=== PATIENT | male | born 1995 | race Caucasian/White ===

== ENCOUNTER 2020-08-29 17:22 | Emergency (ER) | payer OTHER, SELFPAY ==
--- NOTE | ~2020-08-29 | US_ITS ---
EXAMINATION: US scrotum doppler DATE: 08/29/2020 18:32 INDICATION: Right-sided scrotal swelling and pain TECHNIQUE: Testicular sonogram utilizing grayscale and Doppler COMPARISON: CT dated 04/29/2019 FINDINGS: The right testis measures 4.1 x 3.0 x 2.7 cm. The left testis measures 4.7 x 2.9 x 2.1 cm. Symmetric normal grayscale appearance to both testes. There is normal vascular flow to both testes. The right e pididymis is normal with normal vascular flow. 4 mm anechoic cyst at the head of the left epididymis. The left epididymis is otherwise normal with normal vascular flow. There is no varicocele or hydroce le. Hyperechoic herniated fat seen along the cephalad margin of the right testis with corresponding l arge fat-containing right inguinal hernia evident on the prior CT study extending to the base of the nonvisualized scrotum. IMPRESSION: 1. Large fat-containing right inguinal hernia extending to the cephalad margin of the right testis. Otherwise normal scrotal ultrasound. Reviewed, dictated and finalized at location H. R ENERGY SYSTEMS ENGINEER
[2020-08-29 17:35] VITALS: BP 150/89; PULSE 95; RESP 16; TEMP 36.7; O2SAT 99
--- NOTE | 2020-08-29 18:35 | PC.NURSE ---
Pt unable to verify home medications. Pt unsure of names and dosages of his home medications.
[2020-08-29 18:44] LABS: Basophils Absolute Auto 0.1 K/mm3 (0.0-0.1); Basophils Percent Auto 0.8 % (0.2-1.2); Eosinophils Absolute Auto 0.6 K/mm3 (0-0.3); Eosinophils Percent Auto 6.3 % (0-4.4); Hematocrit 46.7 % (42.0-52.0); Hemoglobin 15.8 g/dL (14.0-18.0); Immature Granulocyte Absolute 0.09 K/mm3 (0.00-0.031); Immature Granulocyte Percent A 0.9 % (0-0.5); Lymphocytes Absolute Auto 3.56 K/mm3 (0.9-3.2); Lymphocytes Percent Auto 36.9 % (18.3-44.2); Mean Corpuscular HGB Conc 33.8 g/dl (32-36); Mean Corpuscular Hemoglobin 29.5 pg (26-34); Mean Corpuscular Volume 87.1 fl (80-100); Mean Platelet Volume 9.3 fl (7.4-10.4); Monocytes Absolute Auto 0.8 K/mm3 (0.1-0.6); Monocytes Percent Auto 8.4 % (2.6-8.5); Neutrophils Absolute Auto 4.5 K/mm3 (1.3-6.7); Neutrophils Percent Auto 46.7 % (45.5-73.1); Platelet Count Result 404 k/mm3 (150-375); Red Blood Count 5.36 M/mm3 (4.6-6.20); Red Cell Distribution Width 13.6 % (11.5-14.5); White Blood Count 9.6 K/mm3 (4.5-10.0)
--- NOTE | 2020-08-29 18:45 | ED.GENADULT ---
HPI - General Adult General Chief complaint: Urogenital-Male Stated complaint: R SCROTAL SWELLING Time Seen by Provider: 08/29/20 17:40 Source: patient Mode of arrival: ambulatory Limitations: no limitations History of Present Illness HPI narrative: Patient is a 25-year-old male who presents to emergency department for evaluation of right scrotal swelling for 4 months denies injury or trauma denies any similar occurrence outside of the 4 months duration denies any change in degree of symptoms was seen by primary care referred to emergency department for evaluation patient on arrival denies any pain or other complaints and is resting comfortably in the room in no distress Related Data Allergies Allergy/AdvReac Type Severity Reaction Status Date / Time No Known Allergies Allergy Unknown Verified 08/29/20 18:43 Review of Systems Review of Systems: All systems reviewed & are unremarkable except as noted in HPI and below PMFSH Social History Social History Smoking status: Current every day smoker Alcohol intake: current Gender identity (if verbalized by the patient): Male Exam Narrative: Exam Narrative: GENERAL: Well-appearing, well-nourished, and in no acute distress. HEAD: Normocephalic, atraumatic. EYES: PERRLA and EOMI. ENT: Nares clear, no rhinorrhea or epistaxis. Mucous membranes moist. CHEST: Clear to auscultation. No respiratory distress. No wheezes rales or rhonchi HEART: Regular rate and rhythm. No murmur heard. Normal peripheral pulses. ABDOMEN: Soft, nontender, nondistended,, tenderness of the right scrotum testicle is nontender findings consistent with hernia EXTREMITIES: Normal range of motion. No edema. SKIN: Warm, dry, no rash. NEURO: No focal deficits. Alert and oriented x3. Cranial nerves II through XII grossly intact PSYCH: Normal mood and affect. Course Course Emergency Course: Patient in the room in no distress aware of case findings treatment plan diagnosis agreeing to follow-up as directed Vital Signs Vital signs: Vital Signs Temperature 98.1 F 08/29/20 17:35 Pulse Rate 95 08/29/20 17:35 Respiratory Rate 16 08/29/20 17:35 Blood Pressure 150/89 H 08/29/20 17:35 Pulse Oximetry 99 08/29/20 17:35 Temperature 98.1 F 08/29/20 17:35 Pulse Rate 95 08/29/20 17:35 Respiratory Rate 16 08/29/20 17:35 Blood Pressure 150/89 H 08/29/20 17:35 Pulse Oximetry 99 08/29/20 17:35 Medical Decision Making MDM Narrative Medical decision making narrative: With hernia no incarceration will be discharged home provided with reasons to return given surgical follow-up Vital Signs Vital Signs: Vital Signs Temperature 98.1 F 08/29/20 17:35 Pulse Rate 95 08/29/20 17:35 Respiratory Rate 16 08/29/20 17:35 Blood Pressure 150/89 H 08/29/20 17:35 Pulse Oximetry 99 08/29/20 17:35 Temperature 98.1 F 08/29/20 17:35 Pulse Rate 95 08/29/20 17:35 Respiratory Rate 16 08/29/20 17:35 Blood Pressure 150/89 H 08/29/20 17:35 Pulse Oximetry 99 08/29/20 17:35 Lab Data Result diagrams: 08/29/20 18:38 08/29/20 18:38 Labs: Lab Results 08/29/20 08/29/20 Range/Units 18:38 18:38 WBC 9.6 (4.5-10.0) K/mm3 RBC 5.36 (4.6-6.20) M/mm3 Hgb 15.8 (14.0-18.0) g/dL Hct 46.7 (42.0-52.0) % MCV 87.1 (80-100) fl MCH 29.5 (26-34) pg MCHC 33.8 (32-36) g/dl RDW 13.6 (11.5-14.5) % Plt Count 404 H (150-375) k/mm3 MPV 9.3 (7.4-10.4) fl Immature Gran % (Auto) 0.9 H (0-0.5) % Neut % (Auto) 46.7 (45.5-73.1) % Lymph % (Auto) 36.9 (18.3-44.2) % [place] % (Auto) 8.4 (2.6-8.5) % Eos % (Auto) 6.3 H (0-4.4) % Baso % (Auto) 0.8 (0.2-1.2) % Lymph # (Auto) 3.56 H (0.9-3.2) K/mm3 [place] # (Auto) 0.8 H (0.1-0.6) K/mm3 Eos # (Auto) 0.6 H (0-0.3) K/mm3 Baso # (Auto) 0.1 (0.0-0.1) K/mm3 Abs Immat Gran (auto) 0.09 H (0.00-0.031
[2020-08-29 18:58] LABS: Anion Gap 7 mmol/L (8-16); Blood Urea Nitrogen 20 mg/dL (9-20); Calcium 9.8 mg/dL (8.4-10.2); Carbon Dioxide 31 mmol/L (22-30); Chloride 101 mmol/L (98-107); Estimated CRCL calculation 154 ml/min; Estimated Glomerular Filt Rate > 60; Glucose 90 mg/dL (75-110); Potassium 4.2 mmol/L (3.4-5.0); Sodium 139 mmol/L (137-145)
[2020-08-29 19:11] VITALS: BP 140/88; PULSE 88; RESP 20; O2SAT 99
== END 2020-08-29 19:14 | disposition home or self-care (01) ==
PROVIDERS: Emergency Medicine Emergency Medical Services; Emergency Provider Emergency Medicine; PCP Emergency Medicine
DX: K40.90 Unilateral inguinal hernia, without obstruction or gangrene, not specified as recurrent (principal); F17.200 Nicotine dependence, unspecified, uncomplicated
CPT/HCPCS: 36415; 76870; 80048; 85025; 93976; 99284

== ENCOUNTER 2020-09-14 14:47 | Outpatient (CLI) | payer OTHER, SELFPAY ==
--- NOTE | 2020-09-14 14:48 | ECG_ITS ---
Measurements Intervals [place] Rate: 82 P: 17 [place]: 133 QRS: 55 QRSD: 94 T: 36 QT: 335 QTc: 392 Interpretive Statements SINUS RHYTHM BASELINE ARTIFACT- V1 NORMAL ECG Electronically Signed On 09-14-2020 15:07:44 ELECTION JUDGE by Jhony Anne D.O.
== END 2020-09-14 14:48 | disposition home or self-care (01) ==
PROVIDERS: PCP Emergency Medicine; Visit Provider Surgery
DX: Z01.818 Encounter for other preprocedural examination (principal); I10 Essential (primary) hypertension
CPT/HCPCS: 93005

== ENCOUNTER 2020-09-17 01:59 | Outpatient (CLI) | payer OTHER, SELFPAY ==
[2020-09-17 18:52] LABS: SARS-CoV-2 RNA PCR Negative
== END 2020-09-17 02:00 | disposition home or self-care (01) ==
LOC: ANHCOVIDDT 01:59
PROVIDERS: PCP Emergency Medicine; Visit Provider Surgery
DX: Z01.818 Encounter for other preprocedural examination (principal); Z20.828 Contact with and (suspected) exposure to other viral communicable diseases
CPT/HCPCS: 87635; C9803; U0003

== ENCOUNTER 2020-09-20 00:44 | Day surgery (SDC) | payer OTHER, SELFPAY ==
[2020-09-14 09:54] VITALS: BMI 30.7
--- NOTE | 2020-09-20 09:52 | WPDHPUPDATE1 ---
History and Physical Update Update Date/Time: 09/20/20 09:52 History and Physical has been reviewed, including an updated exam of the patient. There are NO changes in the patient's condition. Risks, benefits, and alternatives have been discussed and questions answered. Patient agrees to proceed with procedure.
--- NOTE | 2020-09-20 10:06 | WPDANESEPPF ---
Anes - Initial Pre Proc Eval Procedure: Operation Date: 09/20/20 12:00 Proposed Procedures p Right Inguinal Hernia Repair - Charan Schneider MD Date/Time: 09/20/20 10:06 Surgeon: Charan Schneider MD Pre Op Diagnosis: Right Inguinal Hernia Patient Data Age: 25 Gender: M Height: 6 ft Weight: 102.97 kg Allergies Allergy/AdvReac Type Severity Reaction Status Date / Time No Known Allergies Allergy Unknown Verified 09/14/20 09:39 Home Medications Medication Instructions Recorded Confirmed Type fenofibrate 150 mg capsule 145 mg PO DAILY cap 09/03/20 09/14/20 History metoprolol succinate 25 mg 25 mg PO DAILY 09/03/20 09/14/20 History tablet,extended release 24 hr paroxetine HCl 20 mg tablet 20 mg PO DAILY 09/03/20 09/14/20 History Patient hx anesthesia problems: none Family hx anesthesia problems: none [facility] Past Medical History Medical History (Updated 09/03/20 @ 15:08 by Debra Hernandez) Anxiety High cholesterol HTN (hypertension) Social History Social History Smoking packs per day: 1 Smoking cigarettes per day: 20.0 Years smoked: 4 Smoking pack-years: 4.00 Smoking status: Current every day smoker Tobacco type: cigarettes Alcohol intake: current Substance use: unknown Living arrangements: with family Gender identity (if verbalized by the patient): Male Spiritual care concerns: No Anes - Eval Final PreProcedure Day of Procedure 09/20/20 10:06 Patient weight: overweight Heart: regular rate and rhythm Lungs: clear to auscultation Airway: Mallampati scale class II Neurological: alert and oriented Last oral intake: >/= 8 hours ASA classification: II Emergent: no Anesthetic plan: proceed Anesthesia type and monitoring: general GIVS (may use LMA) and standard monitoring Informed Consent: The patient's anesthetic plan and its attendant risks and benefits were discussed with the patient/family/POA. Questions were solicited and answers provided to the satisfaction of the patient/family/POA.
[2020-09-20] MEDS: ACETAMINOPHEN 500 MG TABLET 1000 MG PO (10:18)
[2020-09-20] MEDS: LACTATED RINGERS 1,000 ML 30 ML IV CONT (10:31)
[2020-09-20] MEDS: KETOROLAC 15 MG/ML VIAL (*BKC) IV PUSH (10:32)
--- NOTE | 2020-09-20 10:45 | SUR.PREOP ---
1040-DR. STONER AWARE PT DID NOT TAKE METOPROLOL TODAY-AWARE LAST DOSE @ 0800 09/19/2020 AND B/P TODAY 157/91. HR 98. NO NEW ORDERS.
[2020-09-20] MEDS: ceFAZolin 2 GM/D5W 50 ML 2 GM/50 ML BAG IVPB (12:11)
[2020-09-20] MEDS: BUPIVACAINE HCL 0.5% PF 30 ML VIAL INFILTRATE (12:32)
[2020-09-20 13:47] VITALS: BP 131/78; PULSE 91; RESP 14; TEMP 36.2; O2SAT 97
[2020-09-20 14:17] VITALS: BP 111/59; PULSE 93; RESP 14
--- NOTE | 2020-09-20 14:44 | P.OP_ITS ---
Procedure Note - Detailed Date of procedure: 09/20/20 Pre-op diagnosis: Right Inguinal Hernia Right inguinal hernia Post-op diagnosis: same (Indirect hernia) Procedure performed: Repair of right inguinal hernia with 6 cm Parietex hernia mesh system Description of procedure: The patient was taken to surgery and IV sedation was administered. The right groin and genitalia were prepped and draped. Proposed incision was marked on the skin. Local was infiltrated into the skin and the deeper subcutaneous tissues. Incision was made and deepened through the subcutaneous. Crossing veins were cauterized and divided. Dissection was carried through Wolfgang's fascia down to the external oblique aponeurosis. The aponeurosis was exposed as was the external ring. Additional local anesthesia was infiltrated deep to the aponeurosis in the area of the spermatic cord and inguinal canal contents. The aponeurosis was opened laterally and extended medially through the external ring. The leaves of the aponeurosis were dissected free from the spermatic cord. The ileoinguinal nerve was carefully preserved throughout the dissection and was left attached to the spermatic cord. The cord was then mobilized medially on a Collins drain. The cord was dissected back to the internal ring. Dissection was then carried out in the anteromedial spermatic cord. The hernia sac was found and dissected free. This was a very large hernia that extended down into the scrotum. The hernia sac was dissected free from the spermatic cord carefully and very little bleeding occurred. The sac was then dissected back to a high dissection. It was dunked into the retroperitoneum. A 6 centimeter Parietex [place] was chosen. It was folded to form a plug. It was placed in the defect. The edges were sutured to the transversalis fascia with interrupted 3 0 Vicryl suture. The hernia defect was then partially closed with some additional 3 0 Vicryl suture. Patch was then cut to the appropriate size and placed over the inguinal canal floor. The lateral leaves were passed beyond the cord. The cord and ileoinguinal nerve were then laid over the patch. The external oblique aponeurosis was closed with interrupted 3 0 Vicryl suture. Wolfgang's fascia was closed with interrupted 3 0 Vicryl suture. The subcutaneous was closed with interrupted 4 0 Vicryl suture. Four 0 Vicryl subcuticular skin sutures were placed. The skin was closed finally with a running 4 0 Monocryl skin suture. The wound was dressed with Exofin surgical adhesive. The patient was awakened and taken to recovery in good condition. Sponge and needle counts were correct x2. Implants: 6 cm Parietex hernia mesh system Anesthesia: MAC and local (0.5% Marcaine with Exparel) Surgeon: Charan Schneider MD Transportation Specialist: Galo PETERSON Estimated blood loss (mL): 5 Drains: No Packing: No Pathology: none sent Complications: None Condition: stable Disposition: PACU Findings: Indirect inguinal hernia. No sliding hernia was noted. Very large hernia with relatively small hernia defect
[2020-09-20 14:47] VITALS: BP 133/71; PULSE 86; RESP 14
--- NOTE | 2020-09-20 15:25 | SUR.PHASEII ---
1415 PT URINATED WITHOUT INCIDENT.
== END 2020-09-20 15:00 | disposition home or self-care (01) ==
PROVIDERS: PCP Emergency Medicine; Visit Provider Surgery
PROC: (CPT 49505; principal; 2020-09-20 12:00)
DX: K40.90 Unilateral inguinal hernia, without obstruction or gangrene, not specified as recurrent (principal); I10 Essential (primary) hypertension; E78.00 Pure hypercholesterolemia, unspecified; F41.9 Anxiety disorder, unspecified; F17.210 Nicotine dependence, cigarettes, uncomplicated
CPT/HCPCS: 49505; A9270; C1781; C9290; J0690; J1100; J1170; J1885; J2250; J2405; J2704; J3010; J7120

== ENCOUNTER 2020-09-21 13:59 | Emergency (ER) | payer OTHER, SELFPAY ==
[2020-09-21 14:01] VITALS: BP 124/75; PULSE 100; RESP 18; TEMP 36.6; O2SAT 98
--- NOTE | 2020-09-21 14:01 | ECG_ITS ---
Measurements Intervals [place] Rate: 104 P: 24 [place]: 144 QRS: 40 QRSD: 96 T: 11 QT: 304 QTc: 400 Interpretive Statements SINUS TACHYCARDIA NONSPECIFIC T-WAVE ABNORMALITY- INFERIOR LEADS BORDERLINE ECG Electronically Signed On 09-21-2020 14:37:49 PLASTIC WELDING MACHINE OPERATOR by Jhony Anne D.O.
[2020-09-21 14:30] LABS: Basophils Absolute Auto 0.1 K/mm3 (0.0-0.1); Basophils Percent Auto 0.3 % (0.2-1.2); Eosinophils Absolute Auto 0.1 K/mm3 (0-0.3); Eosinophils Percent Auto 0.7 % (0-4.4); Hemoglobin 14.2 g/dL (14.0-18.0); Immature Granulocyte Absolute 0.13 K/mm3 (0.00-0.031); Immature Granulocyte Percent A 0.7 % (0-0.5); Lymphocytes Absolute Auto 3.42 K/mm3 (0.9-3.2); Lymphocytes Percent Auto 19.3 % (18.3-44.2); Mean Corpuscular HGB Conc 33.8 g/dl (32-36); Mean Corpuscular Hemoglobin 28.9 pg (26-34); Mean Corpuscular Volume 85.4 fl (80-100); Mean Platelet Volume 9.7 fl (7.4-10.4); Monocytes Absolute Auto 1.7 K/mm3 (0.1-0.6); Monocytes Percent Auto 9.5 % (2.6-8.5); Neutrophils Absolute Auto 12.3 K/mm3 (1.3-6.7); Neutrophils Percent Auto 69.5 % (45.5-73.1); Platelet Count Result 405 k/mm3 (150-375); Red Blood Count 4.92 M/mm3 (4.6-6.20); Red Cell Distribution Width 13.3 % (11.5-14.5); White Blood Count 17.7 K/mm3 (4.5-10.0)
[2020-09-21 14:40] LABS: Anion Gap 7 mmol/L (8-16); Blood Urea Nitrogen 15 mg/dL (9-20); Calcium 9.3 mg/dL (8.4-10.2); Carbon Dioxide 28 mmol/L (22-30); Chloride 104 mmol/L (98-107); Estimated CRCL calculation 148 ml/min; Estimated Glomerular Filt Rate > 60; Glucose 114 mg/dL (75-110); Potassium 4.1 mmol/L (3.4-5.0); Sodium 139 mmol/L (137-145)
--- NOTE | 2020-09-21 14:43 | PC.NURSE ---
Patient left ER waiting room to go outside to car.
[2020-09-21 14:46] LABS: Prothrombin Time 13.7 Seconds (11.1-14.7)
[2020-09-21 14:47] LABS: Partial Thromboplastin Time 26.3 SECONDS (22.3-36.8)
[2020-09-21 14:51] LABS: Troponin I < 0.012 ng/mL (0.000-0.034)
--- NOTE | 2020-09-21 14:59 | PC.NURSE ---
Patient called for room placement with no answer. Patient never returned from his car after leaving ER waiting room.
--- NOTE | 2020-09-21 15:07 | PC.NURSE ---
Patient was called by this and educated and advised that he should return to the ER for further evaluation. Patient states that he will return and check back in for further evaluation per EDP recommendation.
== END 2020-09-21 15:05 | disposition left against medical advice (07) ==
LOC: ANHED 15:01
PROVIDERS: Emergency Provider Emergency Medicine; PCP Emergency Medicine
DX: R00.0 Tachycardia, unspecified (principal); R94.31 Abnormal electrocardiogram [ECG] [EKG]
CPT/HCPCS: 36415; 80048; 84484; 85025; 85610; 85730; 93005; 99199

== ENCOUNTER → 2022-02-04 02:01 | Outpatient (CLI) | payer OTHER, SELFPAY ==
[2022-02-04 11:46] LABS: SARS-CoV-2 RNA PCR Negative
== END ==
PROVIDERS: PCP Emergency Medicine; Visit Provider Emergency Medicine
DX: R05.9 Cough, unspecified (principal); Z20.822 Contact with and (suspected) exposure to COVID-19
CPT/HCPCS: C9803; U0003; U0005

== ENCOUNTER 2022-04-25 18:43 | Emergency (ER) | payer OTHER, SELFPAY ==
[2022-04-25] VITALS (15 sets, daily range): BP systolic 137–150; BP diastolic 72–98; PULSE 80–114; RESP 16; TEMP 36.6–36.8; O2SAT 97–100
--- NOTE | ~2022-04-25 | CT_ITS ---
EXAMINATION: CT BRAIN W/O DATE: 04/25/2022 19:47 INDICATION: Headache TECHNIQUE: Computed tomography (CT) of the head was performed without intravenous contrast. The dose- length product was 681.00 mGy-cm. Automated exposure control and iterative reconstruction technique w ere employed. COMPARISON: No prior studies for comparison. FINDINGS: Normal brain parenchymal volume for age. Normal martin-white differentiation. No acute intrac ranial hemorrhage, infarction, mass or mass effect. No ventriculomegaly or midline shift. Midline sagittal images demonstrate a normal corpus callosum, c raniovertebral junction and sella turcica. Basilar cisterns are patent. There is mucosal thickening of the maxillary and ethmoid sinuses. IMPRESSION: 1. No acute intracranial abnormality. 2: Moderate sinus disease. Reviewed, dictated and finalized at location A.
--- NOTE | ~2022-04-25 | XR_ITS ---
XR_[id number] INDICATION: Neck pain and headaches TECHNIQUE: 3 views of the cervical spine. FINDINGS: No prior studies for comparison. The cervical spine is visualized to the cervicothoracic junction. There is no prevertebral soft tiss ue swelling, listhesis, or loss of vertebral body height. Intervertebral disc spaces are normal. Th e osseous central canal is patent. No displaced cervical spine fractures are identified. IMPRESSION: 1. No acute osseous abnormality of the cervical spine. Reviewed, dictated and finalized at location A.
[2022-04-25 19:48] LABS: Basophils Absolute Auto 0.1 K/mm3 (0.0-0.1); Basophils Percent Auto 0.8 % (0.2-1.2); Eosinophils Absolute Auto 0.6 K/mm3 (0-0.3); Eosinophils Percent Auto 4.6 % (0-4.4); Hematocrit 49.3 % (42.0-52.0); Hemoglobin 16.4 g/dL (14.0-18.0); Immature Granulocyte Absolute 0.14 K/mm3 (0.00-0.031); Immature Granulocyte Percent A 1.2 % (0-0.5); Lymphocytes Absolute Auto 3.98 K/mm3 (0.9-3.2); Lymphocytes Percent Auto 32.8 % (18.3-44.2); Mean Corpuscular HGB Conc 33.3 g/dl (32-36); Mean Corpuscular Hemoglobin 28.2 pg (26-34); Mean Corpuscular Volume 84.9 fl (80-100); Mean Platelet Volume 9.8 fl (7.4-10.4); Monocytes Absolute Auto 0.9 K/mm3 (0.1-0.6); Monocytes Percent Auto 7.3 % (2.6-8.5); Neutrophils Absolute Auto 6.5 K/mm3 (1.3-6.7); Neutrophils Percent Auto 53.3 % (45.5-73.1); Platelet Count Result 388 k/mm3 (150-375); Red Blood Count 5.81 M/mm3 (4.6-6.20); Red Cell Distribution Width 13.7 % (11.5-14.5); White Blood Count 12.1 K/mm3 (4.5-10.0)
[2022-04-25 19:57] LABS: Anion Gap 9 mmol/L (8-16); Blood Urea Nitrogen 16 mg/dL (9-20); Calcium 9.6 mg/dL (8.4-10.2); Carbon Dioxide 25 mmol/L (22-30); Chloride 106 mmol/L (98-107); Estimated CRCL calculation 145 ml/min; Estimated Glomerular Filt Rate > 60; Glucose 97 mg/dL (65-110); Potassium 4.4 mmol/L (3.4-5.0); Sodium 140 mmol/L (137-145)
[2022-04-25] MEDS: SODIUM CHLORIDE 0.9% IV 1,000 ML 999 ML IV CONT (20:08)
[2022-04-25] MEDS: KETOROLAC 30 MG/ML VIAL (*BKC) IV PUSH (20:09)
--- NOTE | 2022-04-25 20:59 | ED.HA ---
HPI - Headache General Chief Complaint: Headache Stated Complaint: Headaches Time Seen by Provider: 04/25/22 19:01 History of Present Illness HPI Narrative: Patient is a 27-year-old male who presents ER with headache ongoing for the last month. Has a daily. Posterior at the base of his skull where it attaches to his neck. No trauma. Cannot describe any aggravating factors. Improves temporarily when he takes Tylenol. No change in vision or hearing. Does have a little bit of numbness just lateral to the spine at that area that is intermittent. He has no tinnitus. No slurred speech. No focal weakness. He has seen his primary care doctor who continues to recommend [id number] pain medication. Patient reports normal eating and drinking habits. No increased stress despite his being in her third trimester . Related Data Home Medications Medication Instructions Recorded Confirmed losartan 25 mg tablet 25 mg PO DAILY 04/02/22 04/21/22 Allergies Allergy/AdvReac Type Severity Reaction Status Date / Time No Known Allergies Allergy Unknown Verified 04/25/22 18:52 Review of Systems Review of Systems: All systems reviewed & are unremarkable except as noted in HPI and below Constitutional: Constitutional: Denies chills, Denies fatigue and Denies fever(s) Eyes: Eyes: Denies change in vision and Denies photophobia ENT: Denies dizziness Neurologic: Denies syncope, Reports headache(s), Denies focal weakness and Reports numbness PMFSH Past Medical History Medical History (Updated 04/25/22 @ 21:00 by Alec Toscano MD) Anxiety High cholesterol HTN (hypertension) Surgical History Surgical History (Updated 04/21/22 @ 13:30 by Valentina Pineda) History of inguinal hernia repair 09/20/20 [facility] repair with 6cm Parietex mesh Social History Social History Smoking packs per day: 1 Smoking cigarettes per day: 20.0 Years smoked: 4 Smoking pack-years: 4.00 Smoking status: Current every day smoker Tobacco type: cigarettes Alcohol intake: current Substance use: unknown Gender identity (if verbalized by the patient): Male Spiritual care concerns: No Exam Narrative: GENERAL: Well-appearing, well-nourished, and in no acute distress. HEAD: Normocephalic, atraumatic. EYES: PERRL and EOMI. NECK: Supple. No reproducible paraspinal muscular tenderness. Sensation intact. CHEST: Clear to auscultation. No respiratory distress. HEART: Regular rate and rhythm. Normal peripheral pulses. EXTREMITIES: Normal range of motion. No edema. NEURO: Alert and oriented x3. PSYCH: Normal mood and affect. Course Course Emergency Course: Headache resolved with Toradol and fluids. Informed results. Discharge home. Vital Signs Vital signs: Vital Signs Temperature 97.9 F 04/25/22 18:45 Pulse Rate 114 H 04/25/22 18:45 Respiratory Rate 16 04/25/22 18:45 Blood Pressure 150/92 H 04/25/22 18:45 Pulse Oximetry 99 04/25/22 18:45 Temperature 98.3 F 04/25/22 20:03 Pulse Rate 97 04/25/22 20:03 Respiratory Rate 16 04/25/22 20:03 Blood Pressure 139/98 H 04/25/22 20:32 Pulse Oximetry 98 04/25/22 20:32 Oxygen Delivery Room Air 04/25/22 18:50 MDM - Headache Lab Data Result diagrams: 04/25/22 19:41 04/25/22 19:41 Labs: Lab Results 04/25/22 04/25/22 Range/Units 19:41 19:41 WBC 12.1 H (4.5-10.0) K/mm3 RBC 5.81 (4.6-6.20) M/mm3 Hgb 16.4 (14.0-18.0) g/dL Hct 49.3 (42.0-52.0) % MCV 84.9 (80-100) fl MCH 28.2 (26-34) pg MCHC 33.3 (32-36) g/dl RDW 13.7 (11.5-14.5) % Plt Count 388 H (150-375) k/mm3 MPV 9.8 (7.4-10.4) fl Immature Gran % (Auto) 1.2 H (0-0.5) % Neut % (Auto) 53.3 (45.5-73.1) % Lymph % (Auto) 32.8 (18.3-44.2) % [place] % (Auto) 7.3 (2.6-8.5) % Eos % (Auto) 4.6 H (0-4.4) % Baso % (Auto) 0.8
== END 2022-04-25 21:15 | disposition home or self-care (01) ==
PROVIDERS: Emergency Provider Emergency Medicine; PCP Emergency Medicine
DX: G44.209 Tension-type headache, unspecified, not intractable (principal); E78.00 Pure hypercholesterolemia, unspecified; F17.210 Nicotine dependence, cigarettes, uncomplicated; J32.9 Chronic sinusitis, unspecified
CPT/HCPCS: 36415; 70450; 72040; 80048; 85025; 96374; 99284; J1885; J7030

== ENCOUNTER 2022-09-09 11:58 | Emergency (ER) | payer OTHER, SELFPAY ==
[2022-09-09] VITALS (11 sets, daily range): BP systolic 121–146; BP diastolic 76–92; PULSE 125–141; RESP 18–30; TEMP 36.8–37.6; O2SAT 95–100
--- NOTE | ~2022-09-09 | CT_ITS ---
EXAMINATION: CT soft tissue neck w con DATE: 09/09/2022 18:19 INDICATION: Strep positive, possible peritonsillar abscess. TECHNIQUE: Computed tomography (CT) of the neck was performed with 75 mL Omnipaque-350 intravenous co ntrast. Automated exposure control and iterative reconstruction technique were employed. The dose-jackie gth product was 543.65 mGy-cm. COMPARISON: None FINDINGS: The thyroid gland is unremarkable. Bilateral palatine tonsillar enlargement, with focal areas of pare nchymal edema, without discrete rim-enhancing collection. Enlarged adenoids. Mild enlargement of the left submandibular gland. The parotid glands are symmetric. Upper anterior cervical chain lymphaden opathy. There are no masses identified. The superior mediastinum is unremarkable. Mild mucosal t hickening at the level of the cords and vallecula, otherwise the airway is unremarkable. Parapharyn geal and pre-glottic fat planes are preserved. Visualized arteries are within normal limits. The o rbits are unremarkable. Complete opacification of the right maxillary sinus possibly secondary to a large retention cyst or polyp, severe mucosal thickening with aerated secretions in the left medulla ry sinus, mucosal thickening in the left frontal ethmoid and sphenoid sinuses. The lungs are clear. The regional bones are normal for age. IMPRESSION: 1. Enlarged, edematous palatine tonsils, without focal abscess. 2. Paranasal sinus findings suggestive of acute sinusitis. 3. Enlargement of the left submandibular gland, adenoids, and bilateral upper anterior cervical chain lymph nodes. Reviewed, dictated and finalized at location K. ENT CARE SPECIALIST IMPRESSION: 1. Enlarged, edematous palatine tonsils, without focal abscess. 2. Paranasal sinus findings suggestive of acute sinusitis. 3. Enlargement of the left submandibular gland, adenoids, and bilateral upper a nterior cervical chain lymph nodes.
[2022-09-09 12:57] LABS: Influenza A QL RT-PCR Negative (Negative); Influenza B QL RT-PCR Negative (Negative); SARS-CoV-2 RNA PCR Negative
--- NOTE | 2022-09-09 13:01 | PC.NURSE ---
Patient was seen walking back inside with family. Patient informed that if he leaves the emergency department we need to remove the IV first.
[2022-09-09 15:35] LABS: Strep Group A RT-PCR Positive (Negative)
--- NOTE | 2022-09-09 15:36 | ECG_ITS ---
Measurements Intervals [place] Rate: 133 P: 50 MT: 148 QRS: 56 QRSD: 89 T: 3 QT: 273 QTc: 407 Interpretive Statements SINUS TACHYCARDIA NONSPECIFIC T-WAVE ABNORMALITY- INFERIOR LEADS ABNORMAL ECG COMPARED TO ECG 09/21/2020 14:10:42 HEART RATE HAS INCREASED Electronically Signed On 09-09-2022 22:56:07 LINEN SUPERVISOR by Jhony Anne D.O.
[2022-09-09] MEDS: ACETAMINOPHEN 500 MG TABLET 1000 MG PO (16:09)
[2022-09-09] MEDS: SODIUM CHLORIDE 0.9% IV 1,000 ML 999 ML IV CONT (16:09)
--- NOTE | 2022-09-09 16:46 | ED.URI ---
HPI - URI/Sore Throat General Chief Complaint: Upper Respiratory Infection <Alyson Mac PA-C - Last Filed: 09/09/22 18:49> Stated Complaint: via EMS with generalized pain and intermittent CP <ROBERTO Ramos Last Filed: 09/09/22 18:49> Time Seen by Provider: 09/09/22 15:36 <ROBERTO Ramos Last Filed: 09/09/22 18:49> Source: patient <ROBERTO Ramos Last Filed: 09/09/22 18:49> Mode of arrival: EMS <ROBERTO Ramos Last Filed: 09/09/22 18:49> Limitations: no limitations <ROBERTO Ramos Last Filed: 09/09/22 18:49> History of Present Illness HPI Narrative: This is a 27-year-old male that presents to the emergency department for cold symptoms present since yesterday. Reports fever, cough, congestion, sore throat, and myalgias. Reports he has had intermittent sharp, left-sided chest pains. He was evaluated at his primary's office and sent here for further management. Reports his family currently have RSV. He took Tylenol earlier today with little relief. Denies shortness of breath. <ROBERTO Ramos Last Filed: 09/09/22 18:49> Related Data Home Medications: Home Medications Medication Instructions Recorded Confirmed losartan 25 mg tablet 25 mg PO DAILY 04/02/22 04/21/22 <ROBERTO Ramos Last Filed: 09/09/22 18:49> Allergies/Adverse Reactions: Allergies Allergy/AdvReac Type Severity Reaction Status Date / Time No Known Allergies Allergy Unknown Verified 04/25/22 18:52 <ROBERTO Ramos Last Filed: 09/09/22 18:49> Review of Systems Review of Systems: CONSTITUTIONAL: Reports fever EYES: Denies redness, or discharge. ENT: Reports congestion, sore throat CARDIOVASCULAR: Reports chest pain. Denies edema. RESPIRATORY: Denies dyspnea. GASTROINTESTINAL: Denies vomiting GENITOURINARY: Denies dysuria or hematuria. SKIN: Denies rash MUSCULOSKELETAL: Reports myalgia. NEUROLOGIC: Reports headache PSYCHIATRIC: Reports anxiety <Alyson Mac PA-C - Last Filed: 09/09/22 18:49> All systems reviewed & are unremarkable except as noted in HPI and below <Alyson Mac PA-C - Last Filed: 09/09/22 18:49> PMFSH Past Medical History Medical History: Medical History (Updated 09/09/22 @ 18:34 by Alyson Mac PA-C) Anxiety High cholesterol HTN (hypertension) <Alyson Mac PA-C - Last Filed: 09/09/22 18:49> Surgical History Surgical History: Surgical History (Updated 04/21/22 @ 13:30 by Valentina Pineda) History of inguinal hernia repair 09/20/20 [facility] repair with 6cm Parietex mesh <Alyson Mac PA-C - Last Filed: 09/09/22 18:49> Social History Social History: Social History Smoking packs per day: 1 Smoking cigarettes per day: 20.0 Years smoked: 4 Smoking pack-years: 4.00 Smoking status: Current every day smoker Tobacco type: cigarettes Alcohol intake: current Substance use: unknown Gender identity (if verbalized by the patient): Male Spiritual care concerns: No <Alyson Mac PA-C - Last Filed: 09/09/22 18:49> Exam Narrative: GENERAL: Well-appearing, well-nourished, and in no acute distress. HEAD: Normocephalic, atraumatic. EYES: EOMI. ENT: Nares clear, no rhinorrhea or epistaxis. Mucous membranes moist. Oropharynx with bilateral tonsillar hypertrophy and exudate, no other lesions. Bilateral cerumen impaction NECK: Supple. No adenopathy or masses. CHEST: Clear to auscultation. No respiratory distress. No wheezes rales or rhonchi HEART: Regular rate and rhythm. No murmur heard. Normal peripheral pulses. EXTREMITIES: Normal range of motion. No edema. SKIN: Warm, dry, no rash. NEURO: No focal deficits. Alert and oriented x3. PSYCH: Normal mood and affect <Alyson Mac PA-C - Last Filed: 09/09/22 18:49> Course BELLING MACHINE OPERATOR/PA Physician Supervision For this encounter, I
[2022-09-09 17:44] LABS: Basophils Absolute Auto 0.1 K/mm3 (0.0-0.1); Basophils Percent Auto 0.4 % (0.2-1.2); Eosinophils Percent Auto 0.2 % (0-4.4); Hematocrit 43.3 % (42.0-52.0); Hemoglobin 14.5 g/dL (14.0-18.0); Immature Granulocyte Absolute 0.31 K/mm3 (0.00-0.031); Immature Granulocyte Percent A 1.3 % (0-0.5); Lymphocytes Absolute Auto 2.21 K/mm3 (0.9-3.2); Lymphocytes Percent Auto 9.5 % (18.3-44.2); Mean Corpuscular HGB Conc 33.5 g/dl (32-36); Mean Corpuscular Hemoglobin 28.9 pg (26-34); Mean Corpuscular Volume 86.4 fl (80-100); Mean Platelet Volume 9.9 fl (7.4-10.4); Monocytes Percent Auto 8.6 % (2.6-8.5); Neutrophils Absolute Auto 18.7 K/mm3 (1.3-6.7); Platelet Count Result 352 k/mm3 (150-375); Red Blood Count 5.01 M/mm3 (4.6-6.20); Red Cell Distribution Width 13.7 % (11.5-14.5); White Blood Count 23.4 K/mm3 (4.5-10.0)
[2022-09-09] MEDS: AMPICILLIN SULB 3 GM/NS 100 ML 3 GM/100 ML VIAL IVPB (17:49)
[2022-09-09 17:54] LABS: Alanine Aminotransferase 38 U/L (6-50); Albumin Level 4.5 g/dL (3.5-5.1); Alkaline Phosphatase 94 U/L (38-126); Anion Gap 12 mmol/L (8-16); Aspartate Amino Transferase 26 U/L (17-59); Bilirubin,Total 0.7 mg/dL (0.2-1.3); Blood Urea Nitrogen 17 mg/dL (9-20); Calcium 8.7 mg/dL (8.4-10.2); Carbon Dioxide 21 mmol/L (22-30); Chloride 103 mmol/L (98-107); Estimated CRCL calculation 161 ml/min; Estimated Glomerular Filt Rate > 60; Glucose 117 mg/dL (65-110); Potassium 3.5 mmol/L (3.4-5.0); Sodium 136 mmol/L (137-145)
[2022-09-09 18:05] LABS: Troponin I < 0.012 ng/mL (0.000-0.034)
== END 2022-09-09 18:33 | disposition left against medical advice (07) ==
PROVIDERS: Emergency Medicine; Physician Assistant; Emergency Provider Emergency Medicine; PCP Emergency Medicine
DX: J02.0 Streptococcal pharyngitis (principal); Z20.822 Contact with and (suspected) exposure to COVID-19; I10 Essential (primary) hypertension
CPT/HCPCS: 36415; 70491; 80053; 84484; 85025; 87636; 87651; 93005; 96361; 96365; 96375; 99284; A9270; J0295; J1100; J7030; Q9967